=== PATIENT | female | born 1965 | race Caucasian/White ===

== ENCOUNTER 2017-11-27 19:39 | Emergency (ER) | payer MEDICAID ==
[~2017-11-27] VITALS: Ht 160 cm; Wt 104.8 kg
[~2017-11-27 19:39] MED LIST: ALBU18HF2 INH; ASPI-611 PO; ATOR20TA PO; ATOR20TA66 PO; ATRIN INH; BUDE10.2 INH; CYAN10006 IM; CYCL-120 PO; DIPH25CA83 PO; DULO-31 PO; ESTR1PAT7 TD; FURO-150 PO; IBUP-1986 PO; IBUP200C5 PO; IMDUR; LANS15CA18 PO; LISI-604 PO; LISI40TA4 PO; LORA10TA7 PO; LOSA50TA3 PO; MONT10TA21 PO; MONT10TA24 PO; NICO-687 TD; NITR0.4T51 SL; NYSPWD TP; OXYB15TA PO; POTASSIUM ER; PREG100C PO; PREG150C PO; PROP40TA7 PO; PROP60CA6 PO; SUMA50TA PO; TERB15CR18 TP; TERBINAFINE; TIZA2TAB4 PO; ZIPR20CA2 PO; ZIPR80CA10 PO; ZOF4T PO; [UNRECOGNIZED DRUG - OTHER]
[2017-11-27 22:24] VITALS: BP 128/76
[2017-11-27] MEDS ORDERED: IBUP-1984 PO (22:49)
[2017-11-27] MEDS ORDERED: ibuprofen tablet 400 MG TABLET PO ONE (22:50)
== END 2017-11-27 23:06 | disposition home or self-care (01) ==
LOC: ER 19:39
DX: M25.531 Pain in right wrist (principal); I10 Essential (primary) hypertension; J45.909 Unspecified asthma, uncomplicated; G89.29 Other chronic pain; K21.9 Gastro-esophageal reflux disease without esophagitis; E11.9 Type 2 diabetes mellitus without complications; Z88.0 Allergy status to penicillin; Z88.8 Allergy status to other drugs, medicaments and biological substances; Z79.82 Long term (current) use of aspirin; Z79.899 Other long term (current) drug therapy
CPT/HCPCS: 29125; 73110; 93005; 99284

== ENCOUNTER → 2017-11-29 | Day surgery (SDC) | payer MEDICAID ==
[2017-11-27 15:40] LABS: BASOPHILS % (AUTO) 0.3 % (0-1); EOSINOPHILS # (AUTO) 0.2 X10'3 (0-0.9); EOSINOPHILS % (AUTO) 2.2 % (0-6); LYMPHOCYTES % (AUTO) 23.4 % (21-51); MEAN CORPUSCULAR HEMOGLOBIN 31.8 PG (27.0-31.0); MEAN CORPUSCULAR HGB CONC 34.7 % (33.0-36.5); MEAN CORPUSCULAR VOLUME 91.5 FL (78-98); MEAN PLATELET VOLUME 6.9 FL (7.4-10.4); MONOCYTES # (AUTO) 0.6 X10'3 (0-0.9); MONOCYTES % (AUTO) 7.6 % (2-12); NEUTROPHILS # (AUTO) 5.6 X10'3 (1.8-7.7); NEUTROPHILS % (AUTO) 66.5 % (42-75); PRE OP HEMATOCRIT 37.2 % (35.0-45.0); PRE OP HEMOGLOBIN 12.9 g/dL (12.0-16.0); PRE OP PLATELET COUNT 241 X10'3 (140-440); RED BLOOD COUNT 4.07 X10'6 (4.20-5.60); RED CELL DISTRIBUTION WIDTH 15.2 % (11.5-14.5)
[2017-11-27 15:44] LABS: CLARITY,URINE SLIGHTLY CLOUDY (Clear); COLOR,URINE STRAW (Yellow); GLUCOSE, URINE NEGATIVE (Neg); KETONES,URINE NEGATIVE (Neg); LEUKOCYTE ESTERASE ,URINE NEGATIVE (Neg); NITRITES, URINE NEGATIVE (Neg); OCCULT BLOOD,URINE NEGATIVE (Neg); PROTEIN,URINE NEGATIVE (Neg); UROBILINOGEN,URINE 0.2 E.U/dL (0.2-1.0)
[2017-11-27 15:51] LABS: UA COLLECTION TYPE CLN CATCH MIDSTREAM
[2017-11-27 15:58] LABS: ALBUMIN 3.4 G/DL (3.4-5.0); ALBUMIN/GLOBULIN RATIO 0.9 (1.1-1.5); ALKALINE PHOSPHATASE 133 IU/L (46-116); BLOOD UREA NITROGEN 20 MG/DL (7-18); BUN/CREATININE RATIO 20.4 (6.6-38.0); CALCIUM 8.8 MG/DL (8.5-10.1); CHLORIDE 105 MMOL/L (99-107); CREATININE 0.98 MG/DL (0.40-0.90); PRE OP ALT 21 U/L (30-65); PRE OP ANION GAP 8 (8-16); PRE OP AST 9 U/L (10-37); PRE OP BILIRUB, TOTAL 0.5 MG/DL (0.0-1.0); PRE OP GLUCOSE 117 MG/DL (70-104); PRE OP POTASSIUM 3.5 MMOL/L (3.4-5.1); PRE OP SODIUM 144 MMOL/L (135-145); TOTAL PROTEIN 7.1 G/DL (6.4-8.2); eGFR 60 ML/MIN
[2017-11-27 16:01] LABS: HEMOGLOBIN A1C 5.5 % (4.5-6.2)
[2017-11-27 16:22] LABS: BACTERIA,URINE 1+ /HPF (Neg); MUCUS STRANDS NONE SEEN /LPF (Neg); RBC,URINE NONE SEEN /HPF (0-2); SQUAMOUS EPITHELIAL CELL,UR MANY /LPF (FEW); WBC,URINE 0-4 /HPF (0-4)
[~2017-11-29] VITALS: Ht 160 cm; Wt 102.1 kg
[2017-11-29] VITALS (8 sets, daily range): BP systolic 112–133; BP diastolic 66–87
[~2017-11-29] MED LIST changes: -ATOR20TA66 PO; -ATRIN INH; +BUPIVAcaine/PF 2.5 mg/ml (0.25%) 30ml vial IJ ONE; -CYAN10006 IM; -CYCL-120 PO; +DOCUMENT DATE & TIME OF BETA-BLOCKER PO ONE; +IBUP-1984 PO; -IBUP200C5 PO; +LIDOcaine 1%/PF (10mg/ml) 5ml vial ONE; -LISI-604 PO; -MONT10TA24 PO; -NICO-687 TD; -PREG100C PO; -PROP40TA7 PO; -TERB15CR18 TP; -ZIPR80CA10 PO; -ZOF4T PO; +albuterol 2.5 MG/3 ML nebule NEB ONE; +albuterol 2.5 MG/3 ML nebule ONE; +famotidine 20mg tablet PO ONE; +fentaNYL /PF 50mcg/ml 5ml ampule ONE; +glycopyrrolate 0.2mg/ml inj ONE; +hydrALAZINE 20mg/ml inj. IV PRN; +labetalol 20mg/4ml (5mg/ml) syringe IV PRN; +meperidine/PF 50mg/ml syringe IV ONE; +meperidine/PF 50mg/ml syringe IV PRN; +midazolam 2 mg/2 ml injection ONE; +morphine 4 MG/ML inj SYRINge IV PRN; +neostigmine methylsulfate 1 MG/ML 10ml vial ONE; +normal saline 1000ml 1,000 ML IV SCH; +ondansetron/PF 4mg/2ml inj IV PRN; +ondansetron/PF 4mg/2ml inj ONE; +propofol inj 20 ML IV ONE; +ringers solution, lacted 1,000 ML IV ONE; +ringers solution, lacted 1,000 ML IV SCH; +sevoflurane 250ml liquid IH ONE; +vancomycin inj 1,500 MG in normal saline 300ml IV soln IV ONE
== END | disposition home or self-care (01) ==
LOC: PAS 07:45
PROVIDERS: ATTEND Surgery
DX: K46.9 Unspecified abdominal hernia without obstruction or gangrene (principal); K66.0 Peritoneal adhesions (postprocedural) (postinfection); I10 Essential (primary) hypertension; E11.42 Type 2 diabetes mellitus with diabetic polyneuropathy; J44.9 Chronic obstructive pulmonary disease, unspecified; G89.29 Other chronic pain; M54.30 Sciatica, unspecified side; K21.9 Gastro-esophageal reflux disease without esophagitis; E78.1 Pure hyperglyceridemia; F41.9 Anxiety disorder, unspecified; F32.9 Major depressive disorder, single episode, unspecified; E66.9 Obesity, unspecified; Z88.0 Allergy status to penicillin; Z88.1 Allergy status to other antibiotic agents; Z79.899 Other long term (current) drug therapy; Z90.710 Acquired absence of both cervix and uterus; Z87.891 Personal history of nicotine dependence
CPT/HCPCS: 36415; 49652; 80053; 81001; 82948; 83036; 85025; 94640; C1758; C1781; J2001; J2175; J2250; J2270; J2405; J2704; J2710; J3010; J3370; J3490; J7120; A7000; J7030

== ENCOUNTER 2019-09-12 08:42 | Outpatient (CLI) | payer MEDICAID ==
[~2019-09-12 08:42] MED LIST changes: -BUPIVAcaine/PF 2.5 mg/ml (0.25%) 30ml vial IJ ONE; -DOCUMENT DATE & TIME OF BETA-BLOCKER PO ONE; -IBUP-1984 PO; -LIDOcaine 1%/PF (10mg/ml) 5ml vial ONE; -OXYB15TA PO; +OXYB15TA19 PO; +PROP60CA37 PO; -PROP60CA6 PO; -TIZA2TAB4 PO; +TIZA2TAB5 PO; -albuterol 2.5 MG/3 ML nebule NEB ONE; -albuterol 2.5 MG/3 ML nebule ONE; -famotidine 20mg tablet PO ONE; -fentaNYL /PF 50mcg/ml 5ml ampule ONE; -glycopyrrolate 0.2mg/ml inj ONE; -hydrALAZINE 20mg/ml inj. IV PRN; -labetalol 20mg/4ml (5mg/ml) syringe IV PRN; -meperidine/PF 50mg/ml syringe IV ONE; -meperidine/PF 50mg/ml syringe IV PRN; -midazolam 2 mg/2 ml injection ONE; -morphine 4 MG/ML inj SYRINge IV PRN; -neostigmine methylsulfate 1 MG/ML 10ml vial ONE; -normal saline 1000ml 1,000 ML IV SCH; -ondansetron/PF 4mg/2ml inj IV PRN; -ondansetron/PF 4mg/2ml inj ONE; -propofol inj 20 ML IV ONE; -ringers solution, lacted 1,000 ML IV ONE; -ringers solution, lacted 1,000 ML IV SCH; -sevoflurane 250ml liquid IH ONE; -vancomycin inj 1,500 MG in normal saline 300ml IV soln IV ONE
== END 2019-09-12 23:59 | disposition home or self-care (01) ==
LOC: RAD 08:42
DX: R56.9 Unspecified convulsions (principal)
CPT/HCPCS: 95819

== ENCOUNTER 2021-08-07 13:33 | Emergency (ER) | payer MEDICAID ==
[~2021-08-07] VITALS: Ht 160 cm; Wt 200.0 kg
[~2021-08-07 13:33] MED LIST changes: +LISI40TA13 PO; -LISI40TA4 PO; +TIZA-189 PO; -TIZA2TAB5 PO
[2021-08-07 13:37] VITALS: BP 146/93
[2021-08-07] MEDS ORDERED: ketorolac trometh. 30mg/ml inj. IM ONE (14:35)
== END 2021-08-07 15:00 | disposition home or self-care (01) ==
LOC: ER 13:33
DX: S80.01XA Contusion of right knee, initial encounter (principal); S80.02XA Contusion of left knee, initial encounter; W18.39XA Other fall on same level, initial encounter; Y93.89 Activity, other specified; Y92.89 Other specified places as the place of occurrence of the external cause; Y99.8 Other external cause status
CPT/HCPCS: 73564; 96372; 99283; J1885

== ENCOUNTER 2023-09-12 09:42 | Inpatient (IN) | payer MEDICAID ==
[~2023-09-12] VITALS: Ht 160 cm; Wt 100.4 kg
[~2023-09-12 09:42] MED LIST changes: +LOSA-416 PO; -LOSA50TA3 PO; +MONT-47 PO; -MONT10TA21 PO
[2023-09-12] MEDS ORDERED: dexamethasone sod phosphate 10mg/ml inj IM STA (13:32)
[2023-09-12] MEDS ORDERED: ipratropium/albuterol 3ml nebule NEB STA (13:33)
[2023-09-12 14:24] LABS: BASOPHILS # (AUTO) 0.1 X10'3 (0-0.2); BASOPHILS % (AUTO) 0.7 % (0-1); EOSINOPHILS % (AUTO) 0.2 % (0-6); HEMOGLOBIN 15.3 g/dl (12.0-16.0); LYMPHOCYTES # (AUTO) 3.3 X10'3 (1.1-4.8); LYMPHOCYTES % (AUTO) 23.7 % (21-51); MEAN CORPUSCULAR HEMOGLOBIN 31.2 PG (27.0-31.0); MEAN CORPUSCULAR HGB CONC 33.9 g/dL (33.0-36.5); MEAN PLATELET VOLUME 6.3 FL (7.4-10.4); MONOCYTES # (AUTO) 1.1 X10'3 (0-0.9); MONOCYTES % (AUTO) 7.9 % (2-12); NEUTROPHILS # (AUTO) 9.5 X10'3 (1.8-7.7); NEUTROPHILS % (AUTO) 67.5 % (42-75); PLATELET COUNT 363 X10'3 (140-440); RED CELL DISTRIBUTION WIDTH 14.3 % (11.5-14.5); WHITE BLOOD COUNT 14.1 X10'3 (4.5-11.0)
[2023-09-12 14:47] LABS: ALANINE AMINOTRANSFERASE 11 U/L (12-78); ALBUMIN 3.1 G/DL (3.4-5.0); ALBUMIN/GLOBULIN RATIO 0.5 (1.1-1.5); ALKALINE PHOSPHATASE 131 IU/L (46-116); ANION GAP 10 (8-16); ASPARTATE AMINO TRANSFERASE 5 U/L (10-37); BILIRUBIN,TOTAL 0.7 MG/DL (0.1-1.0); BLOOD UREA NITROGEN 17 MG/DL (7-18); BUN/CREATININE RATIO 14.7 (10.0-20.0); CALCIUM 9.8 MG/DL (8.5-10.1); CHLORIDE 97 MMOL/L (99-107); CREATININE 1.16 MG/DL (0.40-0.90); GLUCOSE 149 MG/DL (70-104); POTASSIUM 4.1 MMOL/L (3.5-5.1); PRO BRAIN NATRIURETIC PEPTIDE 249 PG/ML (0-125); SODIUM 137 MMOL/L (135-145); TOTAL CARBON DIOXIDE 29.7 MMOL/L (24-32); TOTAL PROTEIN 9.4 G/DL (6.4-8.2); eCRCL 44 ML/MIN; eGFR 48 ML/MIN
[2023-09-12] MEDS ORDERED: acetaminophen 1,000mg/100ml IV 100 ML IV SCH ×2 (15:30→20:00)
[2023-09-12 15:36] LABS: BILIRUBIN,URINE NEGATIVE (Neg); CLARITY,URINE SLIGHTLY CLOUDY (Clear); COLOR,URINE YELLOW (Yellow); GLUCOSE, URINE >=1000 mg/dl (Neg); KETONES,URINE NEGATIVE (Neg); LEUKOCYTE ESTERASE ,URINE NEGATIVE (Neg); NITRITES, URINE NEGATIVE (Neg); OCCULT BLOOD,URINE TRACE-INTACT (Neg); PH,URINE 5.5 (4.8-8.0); PROTEIN,URINE NEGATIVE (Neg); UROBILINOGEN,URINE 0.2 E.U/dL (0.2-1.0)
[2023-09-12 15:37] LABS: UA COLLECTION TYPE CLN CATCH MIDSTREAM
[2023-09-12 15:39] VITALS: PULSE 87; RESP 16; O2SAT 96
[2023-09-12 15:43] LABS: BACTERIA,URINE 2+ /HPF (Neg); SQUAMOUS EPITHELIAL CELL,UR MANY /LPF (FEW)
[2023-09-12 15:44] LABS: RBC,URINE 0-2 /HPF (0-2); WBC,URINE 0-4 /HPF (0-4); YEAST FEW /HPF (NEGATIVE)
[2023-09-12] MEDS ORDERED: proMETHazine DM oral syrup 5ml UD PO ONE (15:45)
[2023-09-12 15:49] VITALS: PULSE 81; RESP 18; O2SAT 100
[2023-09-12] MEDS ORDERED: magnesium Cl slow-release 64mg tablet PO PRN (17:00)
[2023-09-12] MEDS ORDERED: HYDROcodone/acetaminophen 5mg/325mg tablet PO PRN (17:00)
[2023-09-12] MEDS ORDERED: morphine 2 MG/ML inj. syringe IV PRN ×2 (17:00)
[2023-09-12] MEDS ORDERED: HYDROcodone/acetaminophen 10/325mg tab PO PRN (17:00)
[2023-09-12] MEDS ORDERED: magnesium 4gm in 100ml NS 100 ML IV PRN (17:00)
[2023-09-12] MEDS ORDERED: potassium Cl 20 mEq SR tablet PO PRN ×2 (17:00)
[2023-09-12] MEDS ORDERED: magnesium hydroxide 30ml (MOM) UD suspension PO PRN (17:00)
[2023-09-12] MEDS ORDERED: mag hydrox/Alum hydrox/simeth 30ml oral suspension PO PRN (17:00)
[2023-09-12] MEDS ORDERED: ondansetron/PF 4mg/2ml inj IV PRN (17:00)
[2023-09-12] MEDS ORDERED: magnesium 2GM in 50ml NS 50 ML IV PRN (17:00)
[2023-09-12] MEDS ORDERED: potassium Cl 40MEQ/1/2NS 520ml 520 ML IV PRN (17:00)
[2023-09-12] MEDS ORDERED: acetaminophen 325mg tablet PO PRN ×2 (17:00)
[2023-09-12] MEDS ORDERED: albuterol 2.5 MG/3 ML nebule NEB PRN (17:05)
[2023-09-12] MEDS ORDERED: ipratropium/albuterol 3ml nebule NEB PRN (17:05)
[2023-09-12] MEDS: furosemide 10 MG/1 ML 10ml inj IV SCH (17:54)
[2023-09-12] MEDS ORDERED: PROP40TA72 PO (18:01)
[2023-09-12] MEDS ORDERED: PREG50CA65 PO (18:01)
[2023-09-12] MEDS ORDERED: POTA8CAP20 PO (18:01)
[2023-09-12] MEDS ORDERED: HYDR-3686 PO (18:01)
[2023-09-12] MEDS ORDERED: DIVA500T39 PO (18:01)
[2023-09-12] MEDS ORDERED: LOSA50TA64 PO (18:01)
[2023-09-12] MEDS ORDERED: ZIPR80CA10 PO (18:01)
[2023-09-12] MEDS ORDERED: OMEP20CA16 PO (18:01)
[2023-09-12] MEDS ORDERED: nitroGLYCERIN 0.4mg SUBLingual tab SL PRN (18:15)
[2023-09-12] MEDS ORDERED: SUMAtriptan 25 MG tablet PO PRN (18:15)
[2023-09-12] MEDS ORDERED: dextrose 50%-water 50ml dispensing syringe IV PRN ×2 (18:55)
[2023-09-12] MEDS ORDERED: glucagon, human recombinant 1mg kit SUBCUT PRN (18:55)
[2023-09-12] MEDS ORDERED: DEXTROSE 15 GM of carb/4 tabs (each vial/BOTTLE has 4 tablets) PO PRN ×2 (18:55)
[2023-09-12] MEDS ORDERED: MESSAGE TO PHARMACY PO ONE (18:55)
[2023-09-12] MEDS: levoFLOXACIN-Levaquin 750MG/D5 150 ML IV SCH (19:09)
[2023-09-12 19:12] VITALS: PULSE 89; RESP 16; O2SAT 95
[2023-09-12] MEDS: K and/or MAG REPLACEMENT MC SCH (20:00)
[2023-09-12] MEDS: docusate sod 100mg capsule PO SCH (20:00)
[2023-09-12] MEDS: nystatin 15 GM powder TP SCH (20:00)
[2023-09-12 20:12] VITALS: BP 125/92; PULSE 97; RESP 20; TEMP 98.6
[2023-09-12] MEDS: methylPREDNISolone sod succ 125mg/2ml vial IV SCH (20:30)
[2023-09-12] MEDS: pregabalin 25mg capsule PO SCH (20:31)
[2023-09-12] MEDS: heparin, porcine 5000 units/ml vial SQ SCH (20:31)
[2023-09-12] MEDS: propranolol 10mg tablet PO SCH (20:31)
[2023-09-12] MEDS: divalproex sodium 500mg tablet.DR PO SCH (21:49)
[2023-09-12] MEDS: ziprasidone 20mg capsule PO SCH (21:49)
[2023-09-12] MEDS: insulin glargine (Lantus) pen - multi-dose SQ SCH (21:55)
[2023-09-12 22:00] VITALS: BP 158/81; PULSE 95; RESP 20; TEMP 98.2; O2SAT 93
[2023-09-13 02:00] VITALS: BP 152/81; PULSE 87; RESP 18; TEMP 96; O2SAT 94
[2023-09-13 07:00] VITALS: BP 152/71; PULSE 88; RESP 20; TEMP 98.6; O2SAT 94
[2023-09-13 07:28] LABS: BASOPHILS % (AUTO) 0.1 % (0-1); EOSINOPHILS % (AUTO) 0 % (0-6); HEMATOCRIT 44.3 % (35.0-45.0); HEMOGLOBIN 14.8 g/dl (12.0-16.0); LYMPHOCYTES # (AUTO) 0.8 X10'3 (1.1-4.8); LYMPHOCYTES % (AUTO) 7.5 % (21-51); MEAN CORPUSCULAR HEMOGLOBIN 30.7 PG (27.0-31.0); MEAN CORPUSCULAR HGB CONC 33.5 g/dL (33.0-36.5); MEAN CORPUSCULAR VOLUME 91.7 FL (78-98); MEAN PLATELET VOLUME 6.3 FL (7.4-10.4); MONOCYTES # (AUTO) 0.1 X10'3 (0-0.9); MONOCYTES % (AUTO) 1.4 % (2-12); NEUTROPHILS # (AUTO) 9.3 X10'3 (1.8-7.7); PLATELET COUNT 352 X10'3 (140-440); RED BLOOD COUNT 4.83 X10'6 (4.20-5.60); RED CELL DISTRIBUTION WIDTH 14.2 % (11.5-14.5); WHITE BLOOD COUNT 10.2 X10'3 (4.5-11.0)
[2023-09-13 07:33] LABS: HEMOGLOBIN A1C 7.4 % (4.5-6.2)
[2023-09-13 07:35] LABS: APTT 37 SECONDS (22-32); PROTHROMBIN TIME 11.1 SECONDS (9.0-12.0)
[2023-09-13 07:41] LABS: ALANINE AMINOTRANSFERASE 13 U/L (12-78); ALBUMIN 2.9 G/DL (3.4-5.0); ALBUMIN/GLOBULIN RATIO 0.5 (1.1-1.5); ALKALINE PHOSPHATASE 129 IU/L (46-116); ANION GAP 10 (8-16); ASPARTATE AMINO TRANSFERASE 10 U/L (10-37); BILIRUBIN,TOTAL 0.6 MG/DL (0.1-1.0); BLOOD UREA NITROGEN 29 MG/DL (7-18); BUN/CREATININE RATIO 20.4 (10.0-20.0); CALCIUM 10.3 MG/DL (8.5-10.1); CHLORIDE 97 MMOL/L (99-107); CHOL/HDL RATIO 2.6 (0.00-4.99); CHOLESTEROL 128 MG/DL (0-200); CREATININE 1.42 MG/DL (0.40-0.90); GLUCOSE 302 MG/DL (70-104); HDL CHOLESTEROL 50 MG/DL (35-60); LDL CHOLESTEROL 43 MG/DL (50-100); PHOSPHORUS 2.8 MG/DL (2.3-4.5); POTASSIUM 3.7 MMOL/L (3.5-5.1); SODIUM 137 MMOL/L (135-145); TOTAL CARBON DIOXIDE 29.6 MMOL/L (24-32); TOTAL PROTEIN 8.7 G/DL (6.4-8.2); TRIGLYCERIDES 248 MG/DL (20-135); eCRCL 36 ML/MIN; eGFR 38 ML/MIN
[2023-09-13] MEDS ORDERED: aspirin 81mg, enteric-coated 1 TAB TABLET.DR PO ONE (08:00)
[2023-09-13] MEDS ORDERED: levoFLOXACIN-Levaquin 750MG/D5 150 ML IV SCH ×2 (08:00→16:40)
[2023-09-13] MEDS: docusate sod 100mg capsule PO SCH ×2 (08:00→19:36)
[2023-09-13] MEDS ORDERED: lisinopril 10 MG tablet PO SCH (08:00)
[2023-09-13] MEDS: nystatin 15 GM powder TP SCH ×2 (08:00→20:52)
[2023-09-13] MEDS: K and/or MAG REPLACEMENT MC SCH ×2 (08:00→20:00)
[2023-09-13] MEDS: levoFLOXACIN-Levaquin 750MG/D5 150 ML IV SCH (09:05)
[2023-09-13] MEDS: furosemide 10 MG/1 ML 10ml inj IV SCH (09:09)
[2023-09-13] MEDS: methylPREDNISolone sod succ 125mg/2ml vial IV SCH ×2 (09:10→19:31)
[2023-09-13] MEDS: propranolol 10mg tablet PO SCH ×2 (09:12→19:35)
[2023-09-13] MEDS: oxybutynin 5mg tablet PO SCH ×3 (09:12→21:18)
[2023-09-13] MEDS: losartan 50mg tablet PO SCH (09:13)
[2023-09-13] MEDS: pantoprazole 40mg Tablet.DR PO SCH (09:13)
[2023-09-13] MEDS: pregabalin 25mg capsule PO SCH ×2 (09:13→19:31)
[2023-09-13] MEDS: atorvastatin 20mg tablet PO SCH (09:14)
[2023-09-13] MEDS: duloxetine 30mg CAPSULE.DR PO SCH (09:14)
[2023-09-13] MEDS: heparin, porcine 5000 units/ml vial SQ SCH ×2 (09:15→19:30)
[2023-09-13] MEDS: divalproex sodium 500mg tablet.DR PO SCH ×4 (09:30→19:30)
[2023-09-13] MEDS: insulin Lispro (HumaLOG) vial - multi-dose SQ SCH ×3 (09:36→19:34)
[2023-09-13 11:00] VITALS: BP 152/85; PULSE 85; RESP 23; TEMP 97.1; O2SAT 92
[2023-09-13] MEDS: guaiFENesin 200mg/20mg codeine phos 10ml UD oral syrup PO PRN ×2 (15:20→22:26)
[2023-09-13] MEDS ORDERED: ondansetron 4mg rapidly disintigrating tab PO PRN (15:55)
[2023-09-13 18:00] VITALS: BP 127/62; PULSE 77; RESP 20; TEMP 96.4; O2SAT 95
[2023-09-13] MEDS: ziprasidone 20mg capsule PO SCH (21:18)
[2023-09-13 21:39] VITALS: PULSE 78; RESP 16; O2SAT 93
[2023-09-13] MEDS: insulin glargine (Lantus) pen - multi-dose SQ SCH (22:24)
[2023-09-14 06:00] VITALS: BP 124/49; PULSE 64; RESP 18; TEMP 97.9; O2SAT 94
[2023-09-14 07:35] VITALS: RESP 18; O2SAT 94
[2023-09-14 07:43] LABS: EOSINOPHILS % (AUTO) 0 % (0-6); MEAN CORPUSCULAR HEMOGLOBIN 31.1 PG (27.0-31.0)
[2023-09-14 07:45] LABS: BASOPHILS % (AUTO) 0.1 % (0-1); HEMATOCRIT 41.3 % (35.0-45.0); HEMOGLOBIN 13.8 g/dl (12.0-16.0); LYMPHOCYTES # (AUTO) 1.2 X10'3 (1.1-4.8); LYMPHOCYTES % (AUTO) 6.7 % (21-51); MEAN CORPUSCULAR HGB CONC 33.5 g/dL (33.0-36.5); MEAN CORPUSCULAR VOLUME 92.9 FL (78-98); MEAN PLATELET VOLUME 6.6 FL (7.4-10.4); MONOCYTES # (AUTO) 0.7 X10'3 (0-0.9); MONOCYTES % (AUTO) 3.9 % (2-12); NEUTROPHILS # (AUTO) 15.5 X10'3 (1.8-7.7); NEUTROPHILS % (AUTO) 89.3 % (42-75); PLATELET COUNT 364 X10'3 (140-440); RED BLOOD COUNT 4.44 X10'6 (4.20-5.60); RED CELL DISTRIBUTION WIDTH 14.3 % (11.5-14.5); WHITE BLOOD COUNT 17.4 X10'3 (4.5-11.0)
[2023-09-14 07:51] LABS: APTT 33 SECONDS (22-32); PROTHROMBIN TIME 10.7 SECONDS (9.0-12.0)
[2023-09-14] MEDS: K and/or MAG REPLACEMENT MC SCH (08:00)
[2023-09-14] MEDS ORDERED: lisinopril 5mg tablet PO SCH (08:00)
[2023-09-14] MEDS ORDERED: aspirin 81mg, enteric-coated 1 TAB TABLET.DR PO SCH (08:00)
[2023-09-14 08:14] LABS: ALANINE AMINOTRANSFERASE 7 U/L (12-78); ALBUMIN 2.7 G/DL (3.4-5.0); ALBUMIN/GLOBULIN RATIO 0.5 (1.1-1.5); ALKALINE PHOSPHATASE 131 IU/L (46-116); ANION GAP 12 (8-16); ASPARTATE AMINO TRANSFERASE 9 U/L (10-37); BILIRUBIN,TOTAL 0.3 MG/DL (0.1-1.0); BLOOD UREA NITROGEN 47 MG/DL (7-18); BUN/CREATININE RATIO 32.6 (10.0-20.0); CALCIUM 9.7 MG/DL (8.5-10.1); CHLORIDE 99 MMOL/L (99-107); CREATININE 1.44 MG/DL (0.40-0.90); GLUCOSE 368 MG/DL (70-104); MAGNESIUM 2.4 MG/DL (1.5-2.4); PHOSPHORUS 5.2 MG/DL (2.3-4.5); SODIUM 136 MMOL/L (135-145); TOTAL CARBON DIOXIDE 24.9 MMOL/L (24-32); TOTAL PROTEIN 7.7 G/DL (6.4-8.2); eCRCL 36 ML/MIN; eGFR 38 ML/MIN
[2023-09-14] MEDS: propranolol 10mg tablet PO SCH (08:34)
[2023-09-14] MEDS: oxybutynin 5mg tablet PO SCH (08:34)
[2023-09-14] MEDS: docusate sod 100mg capsule PO SCH (08:35)
[2023-09-14] MEDS: pantoprazole 40mg Tablet.DR PO SCH (08:35)
[2023-09-14] MEDS: atorvastatin 20mg tablet PO SCH (08:35)
[2023-09-14] MEDS: pregabalin 25mg capsule PO SCH (08:35)
[2023-09-14] MEDS: losartan 50mg tablet PO SCH (08:36)
[2023-09-14] MEDS: duloxetine 30mg CAPSULE.DR PO SCH (08:36)
[2023-09-14] MEDS: divalproex sodium 500mg tablet.DR PO SCH (08:37)
[2023-09-14] MEDS: furosemide 10 MG/1 ML 10ml inj IV SCH (08:38)
[2023-09-14] MEDS: methylPREDNISolone sod succ 125mg/2ml vial IV SCH (08:39)
[2023-09-14] MEDS: heparin, porcine 5000 units/ml vial SQ SCH (08:40)
[2023-09-14] MEDS: insulin Lispro (HumaLOG) vial - multi-dose SQ SCH (08:46)
[2023-09-14 09:01] LABS: PLATELET ESTIMATE NORMAL; POLYCHROMASIA FEW; TOTAL CELLS COUNTED 100
[2023-09-14 09:02] LABS: TEAR DROP CELLS FEW
[2023-09-14] MEDS: nystatin 15 GM powder TP SCH (09:41)
[2023-09-14] MEDS: guaiFENesin 200mg/20mg codeine phos 10ml UD oral syrup PO PRN (09:54)
[2023-09-14] MEDS ORDERED: LEVO-65 PO (10:24)
[2023-09-14] MEDS ORDERED: PRED10TA23 PO (10:24)
[2023-09-14] MEDS ORDERED: GUAI600T45 PO (10:24)
[2023-09-14] MEDS ORDERED: FURO-150 PO ×3 (10:30→11:25)
[2023-09-14 10:31] VITALS: PULSE 94; RESP 16; O2SAT 95
[2023-09-14 11:00] VITALS: BP 122/61; PULSE 64; RESP 16; TEMP 97.3; O2SAT 95
[2023-09-18] MEDS ORDERED: ESTRADIOL TOP SCH (08:00)
== END 2023-09-14 11:20 | disposition home or self-care (01) | DRG 139 ==
LOC: ER 09:42 → ED HOLD 17:01 → PCU 3S 19:40
PROVIDERS: ADMIT Internal Medicine; ATTEND Internal Medicine
DX: J18.9 Pneumonia, unspecified organism (principal); I50.33 Acute on chronic diastolic (congestive) heart failure; N17.9 Acute kidney failure, unspecified; J44.0 Chronic obstructive pulmonary disease with (acute) lower respiratory infection; K21.9 Gastro-esophageal reflux disease without esophagitis; E11.22 Type 2 diabetes mellitus with diabetic chronic kidney disease; I25.10 Atherosclerotic heart disease of native coronary artery without angina pectoris; J44.1 Chronic obstructive pulmonary disease with (acute) exacerbation; I13.0 Hypertensive heart and chronic kidney disease with heart failure and stage 1 through stage 4 chronic kidney disease, or unspecified chronic kidney disease; F32.A Depression, unspecified; E78.5 Hyperlipidemia, unspecified; F17.210 Nicotine dependence, cigarettes, uncomplicated; Z20.822 Contact with and (suspected) exposure to COVID-19; G89.29 Other chronic pain; N18.9 Chronic kidney disease, unspecified; N39.0 Urinary tract infection, site not specified; Z88.0 Allergy status to penicillin; Z88.1 Allergy status to other antibiotic agents; Z79.899 Other long term (current) drug therapy; Z79.82 Long term (current) use of aspirin; Z90.710 Acquired absence of both cervix and uterus
CPT/HCPCS: 36415; 71045; 71250; 80053; 80061; 81001; 82948; 83036; 83605; 83735; 83880; 84100; 84145; 84484; 85007; 85025; 85610; 85730; 87040; 87081; 87088; 87502; 87503; 87811; 93005; 93306; 94640; 94760; 99285; G0378; J0131; J1100; J1644; J1815; J1940; J1956; J2930

== ENCOUNTER 2023-12-23 20:27 | Emergency (ER) | payer MEDICAID ==
[~2023-12-23] VITALS: Ht 160 cm; Wt 100.0 kg
[~2023-12-23 20:27] MED LIST changes: -DIPH25CA83 PO; +DIVA500T39 PO; +GUAI600T45 PO; +HYDR-3686 PO; -IBUP-1986 PO; -IMDUR; -LANS15CA18 PO; -LORA10TA7 PO; -LOSA-416 PO; +LOSA50TA64 PO; +OMEP20CA16 PO; +POTA8CAP20 PO; -POTASSIUM ER; -PREG150C PO; +PREG50CA65 PO; -TERBINAFINE; -TIZA-189 PO; -[UNRECOGNIZED DRUG - OTHER]
[2023-12-23 20:42] VITALS: BP 170/99; PULSE 109; TEMP 98.7; O2SAT 99
[2023-12-23] MEDS ORDERED: ketorolac trometh inj. 60 MG/2 ML VIAL IM ONE (23:10)
[2023-12-23] MEDS ORDERED: PRED20TA PO (23:17)
[2023-12-23] MEDS ORDERED: METH-798 PO (23:17)
[2023-12-23 23:47] VITALS: RESP 16
[2023-12-23] MEDS: ketorolac tromethamine 15mg/ml inj. IM ONE (23:47)
== END 2023-12-23 23:51 | disposition home or self-care (01) ==
LOC: ER 20:28
DX: M54.12 Radiculopathy, cervical region (principal); I10 Essential (primary) hypertension; J44.9 Chronic obstructive pulmonary disease, unspecified; K21.9 Gastro-esophageal reflux disease without esophagitis; E11.9 Type 2 diabetes mellitus without complications; Z88.0 Allergy status to penicillin; Z88.1 Allergy status to other antibiotic agents; Z91.018 Allergy to other foods; Z79.899 Other long term (current) drug therapy; Z79.82 Long term (current) use of aspirin
CPT/HCPCS: 96372; 99283; J1885

== ENCOUNTER 2025-03-28 13:10 | Emergency (ER) | payer MEDICAID ==
[~2025-03-28] VITALS: Ht 160 cm; Wt 90.0 kg
[~2025-03-28 13:10] MED LIST changes: -LISI40TA13 PO; +LISI40TA20 PO; +METH-798 PO
--- NOTE | 2025-03-28 13:32 | ELECTROCARDIOGRAPH REPORT ---
[facility] Test Date: 2025-03-28 Test Time: 13:29:45 Pat Name: ZOE MARKHAM Department: [facility] Patient ID: [id number] Room: Gender: F Cottrell Blower: : 1965 Requested By: SYMONE MIR Order Number: [id number] Reading MD: Dr. Abelardo Blackmon Measurements Intervals [place] Rate: 88 P: 16 MI: 160 QRS: 46 QRSD: 103 T: 28 QT: 402 QTc: 487 Interpretive Statements Sinus rhythm Probable left atrial enlargement Borderline prolonged QT interval Electronically Signed On 03-28-2025 19:29:[address] Abelardo Blackmon Please click the below link to view image of tracing.
[2025-03-28] MEDS ORDERED: SEMA1PEN3 (14:11)
[2025-03-28] MEDS ORDERED: CALC-1276 PO (14:11)
[2025-03-28] MEDS ORDERED: IBUP-1986 PO (14:11)
[2025-03-28] MEDS ORDERED: BUPR-480 (14:11)
[2025-03-28] MEDS ORDERED: HYDR-3965 PO ×2 (14:11→16:53)
[2025-03-28 14:13] VITALS: TEMP 98.1
--- NOTE | 2025-03-28 14:17 | RADIOLOGY REPORT ---
CLINICAL INDICATION: L hip pain after fall TECHNIQUE: 3 radiographic views of the right hip were obtained. Comparison: None FINDINGS/IMPRESSION: There is no evidence of acute fracture or dislocation. The visualized joint space is well maintained. The alignment is anatomical. There is no radiopaque foreign body. Postsurgical changes of the lower abdomen and pelvis hernia repair. Moderate amount of fecal material within the visualized colon.
[2025-03-28 14:25] LABS: MEAN PLATELET VOLUME 6.1 FL (7.4-10.4); RED CELL DISTRIBUTION WIDTH 13.4 % (11.5-14.5)
[2025-03-28 14:28] LABS: CREATININE 1.36 MG/DL (0.40-0.90); TOTAL CARBON DIOXIDE 31.3 MMOL/L (24-32); eCRCL 37 ML/MIN; eGFR 40 ML/MIN
--- NOTE | 2025-03-28 15:47 | RADIOLOGY REPORT ---
CLINICAL INDICATION: LEFT tibial pain TECHNIQUE: Left DI TIB/FIB 2 VWS Comparison: None FINDINGS/IMPRESSION: : Subtle minimally displaced fracture of the proximal fibula.
[2025-03-28 16:51] LABS: LEUKOCYTE ESTERASE ,URINE NEGATIVE (Neg); NITRITES, URINE NEGATIVE (Neg); OCCULT BLOOD,URINE NEGATIVE (Neg)
--- NOTE | 2025-03-28 16:52 | Physician Documentation ---
History of Present Illness ~ Chief Complaint: Mechanical Fall Stated Complaint: HIP PAIN Time Seen by MD: 13:20 Primary Medical Doctor: temi truong DR Mode of Arrival: EMS HPI 59 year old female sustained a ground level fall after losing consciousness. She believes she may have had a seizure because she has a known seizure disorder. She has not been ill, but in her normal state of health. She denies fever, urinary symptoms, cough, N/V/D, headache, chest pain. She is BIB EMS because she was unable to walk and reports pain to her left hip, knee, and foot pain. Tetanus within 5 Years?: No Medication Reconciliation Allergies: Coded Allergies: Penicillins (Verified Allergy, Severe, 09/12/23) STOPS BREATHING cefazolin sodium (Verified Allergy, Unknown, 09/12/23) clindamycin (Verified Allergy, Unknown, 09/12/23) Uncoded Allergies: CRANBERRIES (Allergy, Intermediate, MILD ANAPHYLAXIS, 10/17/10) Scheduled Albuterol Sulfate (Ventolin Hfa), 2 PUFFS INH Q6H PRN, (Reported) Aspirin (Aspir 81), 1 TAB PO DAILY, (Reported) Atorvastatin Calcium* (Lipitor*), 1 TABLET PO HS, (Reported) Budesonide/Formoterol Fumarate (Symbicort 160-4.5 Mcg Inhaler), 2 PUFFS INH Q12H, (Reported) Calcium Carbonate/Vitamin D3 (Calcium 600 mg-Vit D3 10Mcg Tb), 1 TAB PO BID, (Reported) Divalproex Sodium (Divalproex Sodium), 1 TAB PO TID, (Reported) Duloxetine Hcl* (Cymbalta*), 60 MG PO DAILY, (Reported) Furosemide* (Lasix*), 2 TAB PO BID Hydroxyzine Hcl* (Atarax*), 1-2 TAB PO HS, (Reported) Losartan Potassium (Losartan Potassium), 1 TAB PO DAILY, (Reported) Montelukast Sodium (Singulair), Unknown Dose PO HS, (Reported) Nystatin (NYSTOP powder), 1 APPLIC TP BID, (Reported) Omeprazole (Omeprazole), 1 CAP PO DAILY, (Reported) Oxybutynin Chloride (Oxybutynin Chloride ER), 1 TAB PO DAILY, (Reported) Potassium Chloride 8 MEQ* (Slow-K 8 Meq*), 1 TAB PO BID, (Reported) Pregabalin (Pregabalin), 1 CAP PO BID, (Reported) Ziprasidone Hcl (Geodon), 80 MG PO HS, (Reported) Scheduled PRN Hydrocodone Bit/Acetaminophen 5/325 MG ([place] 5/325 MG), 1 TAB PO TID PRN for pain, (Reported) Ibuprofen (Ibuprofen), 1 TAB PO BID PRN for pain, (Reported) Nitroglycerin SL* (Nitrostat SL*), 1 TAB SL Q5MIN PRN for Chest pain Q5min PRNx3-call MD, (Reported) Sumatriptan Succinate* (Imitrex*), 1 TAB PO PRN PRN for headache, (Reported) Miscellaneous Medications Bupropion HCl (Bupropion Xl), (Reported) Semaglutide (Ozempic), (Reported) Discontinued Medications Estradiol (Vivelle-Dot), 1 PATCH TD Q2W, (Reported) Discontinued Reason: patient no longer taking Guaifenesin (Mucinex), 1 TAB PO Q12H Discontinued Reason: patient no longer taking Lisinopril* (Lisinopril*), 5 MG PO HS, (Reported) Discontinued Reason: patient no longer taking Methocarbamol (Methocarbamol), 1 TAB PO Q8H Discontinued Reason: patient no longer taking Propranolol HCl (Inderal LA), 40 MG PO BID, (Reported) Discontinued Reason: patient no longer taking Past Medical History Past Medical History: Hypertension, Asthma, COPD, GERD, Diabetes, Chronic Pain, Chronic Back Pain, Depression Past Surgical History: other Patient History: High blood pressure Alcohol Use: None Drug Use: none Lives with: Family Lives In: Home Occupation: employed Review of Systems All Other Systems at this time: Reviewed and Negative Physical Exam Vital Signs: RN Vital Signs have been reviewed: Yes, Temperature: 98.1, Source: Oral, Heart Rate: 82, Respiratory Rate: 12, BP: 111/73, Pulse Oximetry: 97, Weight: 90.000 Oxygen Flow Rate: 0 Physical Exam HEENT: PERRL, moist oral mucosa, EOMI Pulmonary: No respiratory distress Cardiac: RRR, no murmur, rub or gallop GI: nondistended, soft, nontender, no guarding, no rebound MSK: no deformity, +TTP L hip and knee, no tenderness to L foot. No swelling or discoloration here. Skin: w/d/i, no rash Neuro: alert, nonfocal Psych: normal affect Progress Results/Orders Results/Orders Orders - SYMONE MIR MD Urinalysis, Cult If Indicated (03/28/25 13:20) Hip,Bi,Cmplt(Ap Pelvis) (03/28/25 13:20) Tib/Fib (03/28/25 15:01) Completed Orders - SYMONE MIR MD Cbc/Diff (03/28/25 13:20) CMP (03/28/25 13:20) Hip,Bi,Cmplt(Ap Pelvis) (03/28/25 13:20) Electrocardiogram (03/28/25 13:20) Tib/Fib (03/28/25 15:01) Vital Signs 03/28/25 03/28/25 03/28/25 03/28/25 13:21 13:29 14:01 14:13 Temp 97.5 98.1 Pulse 98 89 88 Resp 20 13 16 12 B/P (MAP) 130/80 123/74 (90) 116/76 (89) Pulse Ox 98 95 97 O2 Flow Rate 0 03/28/25 03/28/25 15:54 16:30 Pulse 88 82 Resp 15 12 B/P (MAP) 113/72 (86) 111/73 (86) Pulse Ox 95 97 O2 Flow Rate 0 Laboratory Tests Test 03/28/25 14:07 03/28/25 16:34 White Blood Count 13.9 H Red Blood Count 4.78 Hemoglobin 14.7 Hematocrit 42.6 Mean Corpuscular Volume 89.1 Mean Corpuscular Hemoglobin 30.8 Mean Corpuscular Hemoglobin Concent 34.6 Red Cell Distribution Width 13.4 Platelet Count 207 Mean Platelet Volume 6.1 L Neutrophils (%) (Auto) 68.4 Lymphocytes (%) (Auto) 21.8 Monocytes (%) (Auto) 8.9 Eosinophils (%) (Auto) 0.7 Basophils (%) (Auto) 0.2 Neutrophils # (Auto) 9.5 H Lymphocytes # (Auto) 3.0 Monocytes # (Auto) 1.2 H Eosinophils # (Auto) 0.1 Basophils # (Auto) 0.0 CBC Comment Sodium Level 136 Potassium Level 4.0 Chloride Level 101 Carbon Dioxide Level 31.3 Anion Gap 4 L Blood Urea Nitrogen 17 Creatinine 1.36 H Estimated GFR/1.73 m2 40 BUN/Creatinine Ratio 12.5 Glucose Level 124 H Calcium Level 8.5 Total Bilirubin 0.6 Aspartate Amino Transf (AST/SGOT) 9 L Alanine Aminotransferase (ALT/SGPT) 12 Alkaline Phosphatase 97 Total Protein 6.9 Albumin 3.1 L Globulin 3.8 Albumin/Globulin Ratio 0.8 L Chemistry Comments Urine Comment Medical Decision Making Findings 59 year old female with L lower extremity pain but no deformity, having possibly had a seizure prior to arrival. Workup was significant only for a nonsurgical fibular fracture. Will place in hard boot, provide pain medication, return precautions. Differential Dx:Considerations: Include: Fracture(s), Cerebral contusion, Contusion(s), Hematoma(s), Laceration(s), Encephalopathy Departure Disposition: 01 HOME / SELF CARE / HOMELESS Impression: Primary Impression: Left fibular fracture Condition: Stable Discharge Instructions: Fall Prevention in the Home, Adult, [id number] Referrals: NO PRIMARY CARE PROVIDER (PCP) Prescriptions Hydrocodone Bit/Acetaminophen 5/325 MG ([place] 5/325 MG) 5 Mg/325 Mg Tablet 1-2 TAB PO Q4-6 hours PRN for pain, #16 TAB Prov: SYMONE MIR MD 03/28/25 Education Educated: Patient Educated regarding: diagnosis, treatment, prognosis, need for follow up Signature Scribe Signature: . Attestation: . SYMONE MIR MD Mar 28, 2025 16:52
[2025-03-28] MEDS: HYDROcodone/acetaminophen 5mg/325mg tablet PO ONE (16:54)
[2025-03-28 16:56] LABS: UA COLLECTION TYPE FOLEY CATH
[2025-03-28 17:03] LABS: MUCUS STRANDS NONE SEEN /LPF (Neg); SQUAMOUS EPITHELIAL CELL,UR FEW /LPF (FEW)
[2025-03-28 18:06] VITALS: BP 111/73; PULSE 82; RESP 14; O2SAT 95
== END 2025-03-28 18:08 | disposition home or self-care (01) ==
LOC: ER 13:11
DX: S82.492A Other fracture of shaft of left fibula, initial encounter for closed fracture (principal); E11.9 Type 2 diabetes mellitus without complications; I10 Essential (primary) hypertension; J44.9 Chronic obstructive pulmonary disease, unspecified; K21.9 Gastro-esophageal reflux disease without esophagitis; F32.A Depression, unspecified; Z88.0 Allergy status to penicillin; Z88.1 Allergy status to other antibiotic agents; Z79.82 Long term (current) use of aspirin; Z79.899 Other long term (current) drug therapy; W18.30XA Fall on same level, unspecified, initial encounter; Y93.89 Activity, other specified; Y92.89 Other specified places as the place of occurrence of the external cause; Y99.8 Other external cause status
CPT/HCPCS: 36415; 73521; 73590; 80053; 81001; 85025; 93005; 99285; L4360